=== PATIENT | male | born 1970 | race Hispanic/Latino ===

== ENCOUNTER 2017-08-02 10:02 | Emergency (ER) | payer BC ==
[~2017-08-02] VITALS: Ht 167.6 cm; Wt 81.6 kg
[2017-08-02] MEDS ORDERED: HYDROCODONE/APAP 10MG-325MG TAB PO ONE (10:30)
[2017-08-02] MEDS ORDERED: CYCLOBENZAPRINE HCL 10 MG TAB PO ONE (11:30)
[2017-08-02] MEDS ORDERED: TRAMADOL HCL 50 MG TAB PO ONE (11:30)
--- NOTE | 2017-08-02 11:52 | Diagnostic Imaging Report ---
Rib series with chest PA view 7 views. - views HISTORY: Pain COMPARISON: None FINDINGS: Displaced fracture of the posterolateral right 10th rib. Osseous alignment is within normal limits. The joint spaces are well-maintained. The soft tissues appear unremarkable. IMPRESSION: Displaced fracture of the posterolateral right 10th rib. Signed by: Dr. Kenrick Evangelista M.D. on 08/02/2017 11:49 AM
[2017-08-02 11:59] VITALS: BP 142/86
== END 2017-08-02 12:16 | disposition home or self-care (01) ==
LOC: ER 10:02
DX: R07.89 Other chest pain (principal); I10 Essential (primary) hypertension; E11.9 Type 2 diabetes mellitus without complications
CPT/HCPCS: 71101; 99283

== ENCOUNTER 2018-01-25 17:59 | Emergency (ER) | payer BC ==
[~2018-01-25] VITALS: Ht 167.6 cm; Wt 81.6 kg
--- OUTSIDE RECORDS SUMMARY | 2018-01-25 18:01 | XMS REPORT ---
Author Author [facility] Address Unknown Phone Unavailable Care Team Providers Care Ironer Name Role Phone SALLIE Rodolfo SONDRA Unavailable Unavailable Problems This patient has no known problems. Allergies, Adverse Reactions, Alerts This patient has no known allergies or adverse reactions. Medications This patient has no known medications. Encounters Start Date/Time End Date/Time Encounter Type Admission Type Attending Clinicians Care Facility Care Department Encounter ID 2017-07-27 00:00:00 2017-07-27 00:00:00 Outpatient [facility] [id number] Results Test Description Test Time Test Comments Text Results Atomic Results Result Comments RIBS UNILAT W/CXR 2017-08-02 11:45:00 [place] [address] Patient Name: HEATHER DAMIAN III MR #: [id number] : 1970 Age/Sex: 47/M Req #: [id number] Adm Physician: Ordered by: DIONNE GARCIA NP Report #: [id number] Location: ER Room/Bed: Procedure: [id number] DX/RIBS UNILAT W/CXR Exam Date: Exam Time: REPORT STATUS: Signed Rib series with chest PA view 7 views. - views HISTORY: Pain COMPARISON: None FINDINGS: Displaced fracture of the posterolateral right 10th rib. Osseous alignment is within normal limits. The joint spaces are well-maintained. The soft tissues appear unremarkable. IMPRESSION: Displaced fracture of the posterolateral right 10th rib. Signed by: Dr. Kenrick Evangelista M.D. on 08/02/2017 11:49 AM Dictated By: LAKHWINDER EVANGELISTA MD, MD 114 Transcribed By: CASIE on 08/02/17 114 COPY TO: DIONNE GARCIA NP
[2018-01-25] MEDS ORDERED: HYDROCODONE/APAP 7.5MG-325MG 1 EA TAB PO NR ×2 (18:30→21:30)
[2018-01-25] MEDS ORDERED: KETOROLAC TROMETHAMINE 60 MG/2 ML VIAL IM NR ×2 (18:30→21:30)
--- NOTE | 2018-01-25 19:43 | Diagnostic Imaging Report ---
Shoulder 2 views CPT code: 19303 Indication:Fall Comparison: None. Findings: 2 views of the right shoulder were obtained. Bones are normally aligned. No fractures are identified. There is remodeling of the lateral humeral head and narrowing of the acromiohumeral interval suggestive of rotator cuff pathology. Visualized ribs are intact. IMPRESSION: No acute traumatic pathology. Signed by: Dr. Rc Mera MD on 01/25/2018 7:40 PM
[2018-01-25] MEDS ORDERED: HYDROCODONE/APAP 7.5MG-325MG 1 EA TAB ONE (21:32)
[2018-01-25] MEDS ORDERED: KETOROLAC TROMETHAMINE 60 MG/2 ML VIAL ONE (21:33)
== END 2018-01-25 22:04 | disposition home or self-care (01) ==
LOC: ER 17:59
DX: S46.011A Strain of muscle(s) and tendon(s) of the rotator cuff of right shoulder, initial encounter (principal); W01.0XXA Fall on same level from slipping, tripping and stumbling without subsequent striking against object, initial encounter; Y92.008 Other place in unspecified non-institutional (private) residence as the place of occurrence of the external cause
CPT/HCPCS: 73030; 99283; J1885

== ENCOUNTER 2018-09-26 09:18 | Emergency (ER) | payer BC ==
[~2018-09-26] VITALS: Ht 167.6 cm; Wt 81.6 kg
[2018-09-26] MEDS ORDERED: LIDOCAINE HCL 1% LOCAL INJ 20 ML VIAL INJ ONE (10:00)
[2018-09-26] MEDS ORDERED: TETANUS/DIPHTHERIA TOX ADULT 0.5 ML SYR IM ONE (10:00)
--- NOTE | 2018-09-26 10:46 | Diagnostic Imaging Report ---
Exam: Left finger Series. History: Laceration with knife Comparison: None. Findings: 3 views of the left fingers. There is normal bone mineralization. Negative for acute, displaced fracture or dislocation. The joint spaces are preserved. No abnormal soft tissue calcification or mass. No cystic erosive changes.Linear soft tissue defect overlying the proximal aspect of the second finger likely representing the known laceration. Impression: 1. Linear soft tissue defect overlying the proximal aspect of the second finger consistent with known laceration. No underlying bony abnormalities. Signed by: Dr. Scott Cavazos M.D. on 09/26/2018 10:42 AM
[2018-09-26] MEDS ORDERED: CEFAZOLIN SOD 1 GM VIAL IM STA (11:01)
[2018-09-26] MEDS ORDERED: HYDROCODONE/APAP 5MG-325MG TAB PO ONE (11:15)
[2018-09-26] MEDS ORDERED: KEFLEX500 MG PO (11:28)
[2018-09-26] MEDS ORDERED: TYLENOL WITH C1 EACH PO (11:28)
[2018-09-27] MEDS ORDERED: SIMVASTATIN40 MG PO (14:37)
[2018-09-27] MEDS ORDERED: LISINOPRIL2.5 MG PO (14:37)
[2018-09-27] MEDS ORDERED: METFORMIN HCL500 MG PO (14:37)
[2018-09-27] MEDS ORDERED: FENOFIBRATE145 MG PO (14:37)
== END 2018-09-26 11:45 | disposition home or self-care (01) ==
LOC: ER 09:18
DX: S61.211A Laceration without foreign body of left index finger without damage to nail, initial encounter (principal); S66.121A Laceration of flexor muscle, fascia and tendon of left index finger at wrist and hand level, initial encounter; W26.0XXA Contact with knife, initial encounter; Y93.89 Activity, other specified
CPT/HCPCS: 12002; 73140; 90471; 90714; 99284; J0690; J2001

== ENCOUNTER → 2018-09-28 | Day surgery (SDC) | payer BC ==
[2018-09-27 17:04] LABS: ANION GAP 15.3 mmol/L (8-16); BLOOD UREA NITROGEN 10 mg/dL (7-26); BUN/CREATININE RATIO 13 (6-25); CALCIUM 9.2 mg/dL (8.4-10.2); CARBON DIOXIDE 24 mmol/L (22-29); CHLORIDE 100 mmol/L (98-107); CREATININE, SERUM 0.77 mg/dL (0.72-1.25); EST GLOMERULAR FILTRATION RATE > 60 ML/MIN (60-); GLUCOSE 232 mg/dL (74-118); POTASSIUM 3.3 mmol/L (3.5-5.1); SODIUM 136 mmol/L (136-145)
[~2018-09-28] MED LIST: BUPIVACAINE HCL 0.5% INJ 30 ML VIAL INJ ONE; CEFAZOLIN SOD 1 GM/NS 50ML 50 ML IV ONE; DEXAMETHASONE SOD PHOS INJ 4 MG/ML VIAL ONE; FENOFIBRATE145 MG PO; FENTANYL CITRATE/PF 100MCG/2 ML INJ ONE; INSULIN REGULAR, HUMAN 100 UNIT/1 ML 3ML VIAL ONE; KEFLEX500 MG PO; KETOROLAC TROMETHAMINE 30 MG/ML VIAL ONE; LIDOCAINE HCL 2% LOCAL INJ 5 ML SDV VIAL INJ ONE; LISINOPRIL2.5 MG PO; METFORMIN HCL500 MG PO; MIDAZOLAM HCL 2 MG/2 ML VIAL ONE; MORPHINE SULFATE INJ 10 MG/ML ONE; MUPIROCIN 2% OINT 22 GM TUBE ONE; ONDANSETRON HCL INJ 2MG/ML 2ML 2 MG/ML VIAL ONE; PROPOFOL IV EMULSION 10 MG/ML 20 ML VIAL ONE; SEVOFLURANE INHAL SOLN 250 ML PEN BTL ONE; SIMVASTATIN40 MG PO; TYLENOL WITH C1 EACH PO
[2018-09-28 12:15] VITALS: BP 121/51
--- NOTE | 2018-09-28 14:34 | Operative Report ---
DATE OF PROCEDURE: 09/28/2018 SURGEON: Sj Bailey MD PREOPERATIVE DIAGNOSIS: Knife wound laceration, left index finger, PIP joint flexion crease level. POSTOPERATIVE DIAGNOSES: 1. Laceration, left index finger, FDS tendon. 2. Laceration, left index finger, FDP tendon. 3. Laceration, left index finger, radial digital nerve. 4. Laceration, left index finger, radial digital artery. 5. Laceration of A2 charlie. PROCEDURES: 1. Repair of left index finger, FDS tendon. 2. Repair of left index finger, FDP tendon. 3. Repair of left index finger, radial digital nerve. 4. Reconstruction of A2 charlie with local tissues. ANESTHESIA: General. HISTORY: The patient is a 48-year-old right-hand dominant male, who was working with a newly sharpen knife and he sustained a laceration extending from the radial side of the index finger at the level of the PIP joint and extending across the volar aspect of the proximal interphalangeal flexion crease towards the ulnar side of the finger. The patient was seen at an urgent care clinic 2 days ago. He was noted to have absent flexion of both the PIP and DIP joints. Absent sensation along the radial aspect of the left index finger. The risks, benefits, and alternatives of treatment were discussed with the patient and he is prepared to undergo the procedure as outlined. PROCEDURE IN DETAIL: The patient was brought to the operating theater and after the induction of adequate general anesthesia, he was prepped and draped in a supine position. A time-out was performed. The patient had been marked preoperatively in the holding area. The laceration was noted and both proximal and distal extensions of the volar Misha zigzag fashion were marked out. The left upper extremity was exsanguinated and the tourniquet was inflated to a pressure of 250 mmHg. The previously placed sutures were removed without difficulty. The remaining incisions were made through the skin and subcutaneous tissues. Venous tributaries were controlled with the bipolar cautery and full thickness skin flaps were elevated off the flexor tendon sheath. There was marked destruction of the A2 charlie at the level of the proximal phalanx. The FDP tendon was clearly lacerated. The FDS tendon was lacerated and there was exposure of the articular surface of the PIP joint. The finger was placed on extension. The joint was opened and the joint was copiously irrigated with antibiotic-containing solution. At this point, the radial half of the FDS tendon was retrieved and this was sutured to the distal aspect of the FDS tendon that was attached to the middle phalanx. A ltcjlc-tq-tkctq stitch was placed using 4-0 Mersilene suture. Once the radial half of the FDS tendon was repaired, the proximal end of the FDP tendon was retrieved and the distal extent of the tendon was noted to be retracted just distal to the DIP flexion crease. With the DIP flexion crease in flexion, approximately a quarter of a centimeter stump of the FDP tendon was able to be visualized and retrieved. The FDP tendon was then pulled distally and attached to the distal stump of the FDP tendon using interrupted [id number]-io-gmyzu 4-0 Mersilene sutures. Care was taken to ensure that there was a riii-actg-bdcyt type repair with good coaptation of both the proximal and of the tendon to the distal stump. At the completion of this repair, the finger was placed through a passive range of motion from full extension to full flexion several times and there was noted to be no gapping at the repair site. At this point, the radial digital neurovascular bundle was dissected both proximal and distal to the area of injury. The radial digital artery had been previously transected and was noted to be coagulated off and this was just cauterized with the bipolar cautery proximally and distally. The proximal stump of the radial digital nerve was identified and freshened up. The distal edge of the radial digital nerve was identified as well. Using 6-0 nylon sutures, several interrupted epineural sutures were placed coapting the radial digital nerve. At this point, the finger was placed through a range of motion again and nerve repair was noted to be satisfactory. At this point, reconstruction of the A2 charlie was performed by utilizing the remnant of the radial half of the A2 charlie and bringing then that over the FDP tendon and suturing it to the local tissue on the ulnar side of the flexor tendon sheath. Interrupted wxopvn-vn-rdzut sutures of 4-0 Mersilene was used to affect this repair. The finger was then placed through a range of motion again and the FDP tendon was noted to glide smoothly underneath the charlie reconstruction. The wound was then copiously irrigated with bacteriostatic saline. The skin flaps were closed with 5-0 nylon in an interrupted horizontal mattress fashion and a Marcaine field block was performed at the base of the left index finger with 0.5% plain Marcaine. Bactroban ointment and Xeroform gauze were placed on the incisions. Sterile bulky dressings were applied. The patient was splinted with 3 and 4 inch Ortho-Glass both distally and volarly across the forearm, wrist, and hand with the hand flexed at approximately 40 degrees of flexion. The MPs have 60 to 70 degrees of flexion and the IPs neutral and the splints were held in place with loosely wrapped Leif wrap. The tourniquet was deflated. All the fingers pinked up nicely and the patient was returned to recovery room in satisfactory condition and discharged with a postoperative instruction sheet as well as a followup appointment. MD HAYDER Tran/SONG /[id number]
== END | disposition home or self-care (01) ==
LOC: OR 07:18
PROVIDERS: ATTEND Plastic Surgery
DX: S66.121A Laceration of flexor muscle, fascia and tendon of left index finger at wrist and hand level, initial encounter (principal); S64.491A Injury of digital nerve of left index finger, initial encounter; S65.511A Laceration of blood vessel of left index finger, initial encounter; S61.211A Laceration without foreign body of left index finger without damage to nail, initial encounter; I10 Essential (primary) hypertension; E11.9 Type 2 diabetes mellitus without complications; W26.0XXA Contact with knife, initial encounter; Z01.810 Encounter for preprocedural cardiovascular examination; Z01.812 Encounter for preprocedural laboratory examination; Z79.84 Long term (current) use of oral hypoglycemic drugs
CPT/HCPCS: 26356 ×2; 36415 ×2; 64831; 80048; 82948; 93005; J0690; J1100; J1885; J2001; J2250; J2270; J2405; J2704; J3010; J1817

== ENCOUNTER 2018-10-08 10:54 | Outpatient (RCR) | payer BC ==
[~2018-10-08 10:54] MED LIST changes: -BUPIVACAINE HCL 0.5% INJ 30 ML VIAL INJ ONE; -CEFAZOLIN SOD 1 GM/NS 50ML 50 ML IV ONE; -DEXAMETHASONE SOD PHOS INJ 4 MG/ML VIAL ONE; -FENTANYL CITRATE/PF 100MCG/2 ML INJ ONE; -INSULIN REGULAR, HUMAN 100 UNIT/1 ML 3ML VIAL ONE; -KETOROLAC TROMETHAMINE 30 MG/ML VIAL ONE; -LIDOCAINE HCL 2% LOCAL INJ 5 ML SDV VIAL INJ ONE; -MIDAZOLAM HCL 2 MG/2 ML VIAL ONE; -MORPHINE SULFATE INJ 10 MG/ML ONE; -MUPIROCIN 2% OINT 22 GM TUBE ONE; -ONDANSETRON HCL INJ 2MG/ML 2ML 2 MG/ML VIAL ONE; -PROPOFOL IV EMULSION 10 MG/ML 20 ML VIAL ONE; -SEVOFLURANE INHAL SOLN 250 ML PEN BTL ONE
== END 2018-10-09 ==
LOC: OT 10:54
PROVIDERS: ATTEND Plastic Surgery
DX: S64.491A Injury of digital nerve of left index finger, initial encounter (principal); S65.511A Laceration of blood vessel of left index finger, initial encounter; S66.121A Laceration of flexor muscle, fascia and tendon of left index finger at wrist and hand level, initial encounter
CPT/HCPCS: 97010; 97110 ×2; 97165; L3808

== ENCOUNTER 2018-11-04 16:00 | Outpatient (RCR) | payer BC | END 2018-11-08 | LOC: OT 16:00 | PROVIDERS: ATTEND Plastic Surgery | DX: S64.491A Injury of digital nerve of left index finger, initial encounter (principal); S65.511A Laceration of blood vessel of left index finger, initial encounter; S66.121A Laceration of flexor muscle, fascia and tendon of left index finger at wrist and hand level, initial encounter ==

== ENCOUNTER 2018-11-18 13:46 | Outpatient (RCR) | payer BC | END 2018-12-09 | LOC: OT 13:46 | PROVIDERS: ATTEND Plastic Surgery | DX: S64.491A Injury of digital nerve of left index finger, initial encounter (principal); S65.511A Laceration of blood vessel of left index finger, initial encounter; S66.121A Laceration of flexor muscle, fascia and tendon of left index finger at wrist and hand level, initial encounter | CPT/HCPCS: 97139 ==

== ENCOUNTER 2022-07-08 20:39 | Emergency (ER) | payer OTHER, BC ==
[~2022-07-08] VITALS: Ht 167.6 cm; Wt 81.6 kg
[2022-07-08] MEDS ORDERED: HYDROCODONE/APAP 10MG-325MG TAB PO ONE (21:00)
[2022-07-08] MEDS ORDERED: TETANUS/DIPHTHERIA TOX ADULT 0.5 ML SYR IM ONE (21:00)
[2022-07-08] MEDS ORDERED: BUPIVACAINE 0.25% 30ML SDV INJ ONE (23:30)
[2022-07-09] MEDS ORDERED: BUPIVACAINE HCL 0.5% 10ML MPF VIAL INJ ONE
[2022-07-09] MEDS ORDERED: DOXYCYCLINE HY100 MG PO (00:35)
[2022-07-09] MEDS ORDERED: HYDROCODON-ACE1 EAC9 PO (00:35)
[2022-07-09 00:56] VITALS: O2SAT 98
== END 2022-07-09 00:59 | disposition home or self-care (01) ==
LOC: ER 20:56
DX: S61.011A Laceration without foreign body of right thumb without damage to nail, initial encounter (principal); W27.0XXA Contact with workbench tool, initial encounter; Y92.89 Other specified places as the place of occurrence of the external cause; I10 Essential (primary) hypertension; E11.9 Type 2 diabetes mellitus without complications; E78.5 Hyperlipidemia, unspecified
CPT/HCPCS: 90471; 90714; 99284